=== PATIENT | female | born 2000 | race Caucasian/White ===

== ENCOUNTER → 2020-03-09 08:48 | Outpatient (CLI) | payer BC, SELFPAY ==
--- NOTE | ~2020-03-09 | US_ITS ---
US breast RT complete 03/09/2020 09:22 Indication: Right breast lump for 3 weeks Procedure: High-resolution ultrasound of the right breast Comparison: No prior studies for comparison. Findings: There is an oval circumscribed hypoechoic mass of the right breast at 6:00, 5 cm from the n ipple. This corresponds to the area of palpable concern and measures 1.4 x 1.5 x 0.6 cm. No internal vascularity or posterior features. Impression: 1: Probable benign right breast mass measuring 1.5 cm maximum dimension. BI-RADS CATEGORY 3-PROBABLY BENIGN FINDING RECOMMENDATION: Six-month follow-up right breast ultrasound recommended. Reviewed, dictated and finalized at location A. Impression: 1: Probable benign right breast mass measuring 1.5 cm maximum dimension. BI-RADS CATEGORY 3-PROBABLY BENIGN FINDING RECOMMENDATION: Six-month follow-up right breast ultrasound recommended.
== END ==
PROVIDERS: PCP Nurse Practitioner Family; Visit Provider Nurse Practitioner Family
DX: N63.10 Unspecified lump in the right breast, unspecified quadrant (principal); R92.8 Other abnormal and inconclusive findings on diagnostic imaging of breast
CPT/HCPCS: 76641

== ENCOUNTER 2021-02-11 14:35 | Emergency (ER) | payer OTHER, BC, SELFPAY ==
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
[2021-02-11 14:55] VITALS: BP 130/99; PULSE 98; RESP 15; TEMP 37; O2SAT 100
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
[2021-02-11 16:43] VITALS: BP 113/76; PULSE 87; RESP 14; O2SAT 100
[2021-02-11 17:43] VITALS: BP 110/75; PULSE 81; RESP 15; O2SAT 100
== END 2021-02-11 17:45 | disposition home or self-care (01) ==
PROVIDERS: Emergency Provider Emergency Medicine; PCP Nurse Practitioner Family
DX: S00.93XA Contusion of unspecified part of head, initial encounter (principal); S60.222A Contusion of left hand, initial encounter; V49.50XA Passenger injured in collision with unspecified motor vehicles in traffic accident, initial encounter
CPT/HCPCS: 70450; 73130; 99284

== ENCOUNTER 2025-01-24 09:15 | Outpatient (CLI) | payer OTHER, SELFPAY ==
--- NOTE | ~2025-01-24 | US_ITS ---
EXAMINATION: US OB <= 14 weeks fetus DATE: 01/24/2025 09:37 INDICATION: Uncertain dating of TECHNIQUE: Real-time pelvic ultrasound utilizing both a transvaginal and transabdominal probe was pe rformed. The interpreting radiologist was not present for the study. COMPARISON: None. FINDINGS: The uterus measures 8.5 x 6.0 x 7.7 cm. There is an intrauterine gestational sac. A yolk sac and fet al pole are identified. The crown rump length measures 1.8 cm, which correlates with an estimated ges tational age of 8 weeks and 2 days. heart motion is identified measuring 167 beats per minute ( bpm) by M-mode Doppler. The right ovary measures 2.8 x 2.4 x 1.5 cm. The left ovary is not visualized. There is vascular flow at the right ovary on color Doppler. There is no free fluid in the pelvis. IMPRESSION: 1. Single living fetus with heart rate of 167 bpm. 2. Gestational age by ultrasound of 8 weeks 2 day(s) +/- 5 day(s) with ultrasound estimated date of delivery (ADOL[facility]) of 09/03/2025. Reviewed, dictated and finalized at location A. IMPRESSION: 1. Single living fetus with heart rate of 167 bpm. 2. Gestational age by ultrasound of 8 weeks 2 day(s) +/- 5 day(s) with ultraso und estimated date of delivery (ADOLPH) of 09/03/2025.
== END 2025-01-24 09:16 | disposition home or self-care (01) ==
PROVIDERS: PCP Obstetrics & Gynecology Gynecology; Visit Provider Obstetrics & Gynecology Gynecology
DX: Z36.87 Encounter for antenatal screening for uncertain dates (principal)
CPT/HCPCS: 76801

== ENCOUNTER 2025-04-14 08:00 | Emergency (ER) | payer OTHER, SELFPAY ==
--- NOTE | 2025-04-14 08:02 | ECG_ITS ---
Test Date: 2025-04-14 08:06:12 Measurements Intervals Halliday Rate: 66 P: 20 [place]: 106 QRS: 27 QRSD: 81 T: 34 QT: 374 QTc: 393 Interpretive Statements SINUS RHYTHM WITH SHORT [place] INTERVAL DELAYED PRECORDIAL R/S TRANSITION BORDERLINE ECG No previous ECG available for comparison Electronically Signed On 04-14-2025 08:30:44 CDT by Itz Nye D.O.
[2025-04-14 08:10] VITALS: BP 130/84; O2SAT 100
[2025-04-14 08:12] VITALS: PULSE 85; RESP 20; TEMP 36.6; O2SAT 100
[2025-04-14 08:31] VITALS: BP 114/66; PULSE 81; RESP 14; TEMP 36.7; O2SAT 100
[2025-04-14 09:02] VITALS: BP 126/83; PULSE 94; RESP 14; O2SAT 100
[2025-04-14] MEDS: ACETAMINOPHEN 500 MG TABLET 1000 MG PO (09:20)
[2025-04-14 09:23] LABS: Hematocrit 37.8 % (37.0-47.0); Hemoglobin 12.6 g/dL (12.0-15.0); Immature Granulocyte Percent A 0.8 % (0-0.5); Lymphocytes Absolute Auto 1.50 K/mm3 (0.9-3.2); Mean Corpuscular HGB Conc 33.3 g/dl (32-36); Mean Corpuscular Hemoglobin 32.0 pg (26-34); Mean Corpuscular Volume 95.9 fl (80-100); Nucleated Red Blood Cells Absolute Auto 0.000 K/mm3 (0.0-0.012); Nucleated Red Blood Cells Perc 0.0 % (0.0-0.2); Platelet Count Result 181 k/mm3 (150-375); Red Blood Count 3.94 M/mm3 (4.2-5.4); White Blood Count 14.5 K/mm3 (4.5-10.0)
[2025-04-14 09:31] VITALS: BP 108/61; PULSE 80; RESP 14; TEMP 36.6; O2SAT 100
[2025-04-14 09:47] LABS: Alanine Aminotransferase 94 U/L (6-35); Albumin Level 3.8 g/dL (3.5-5.1); Alkaline Phosphatase 42 U/L (38-126); Anion Gap 6 mmol/L (4-12); Aspartate Amino Transferase 55 U/L (14-36); Bilirubin,Total 0.3 mg/dL (0.2-1.3); Blood Urea Nitrogen 8 mg/dL (7-17); Calcium 8.7 mg/dL (8.4-10.2); Carbon Dioxide 24 mmol/L (22-30); Chloride 105 mmol/L (98-107); Estimated CRCL calculation 115 ml/min; Estimated Glomerular Filt Rate > 60; Glucose 81 mg/dL (65-110); Potassium 3.9 mmol/L (3.4-5.0); Sodium 135 mmol/L (137-145); Total Protein 6.3 g/dL (6.3-8.2)
[2025-04-14 09:59] LABS: Influenza A QL RT-PCR Negative (Negative); Influenza B QL RT-PCR Negative (Negative); RSV RNA, RT-PCR Negative (Negative); SARS-CoV-2 RNA PCR Negative (Negative)
--- NOTE | 2025-04-14 10:06 | ED_ITS ---
HPI - SOB/Dyspnea General Chief Complaint: Shortness of Breath/Dyspnea Stated Complaint: 20 wks preg, cp, sob Time Seen by Provider: 04/14/25 08:46 History of Present Illness HPI Narrative: This is a 25-year-old female approximately 20 weeks by ultrasound who presents to the ED for back pain and chest pain. Patient states that when she woke up this morning, she had upper back pain that began to radiate to her chest. She states that she was having shortness of breath due to the pain felt like she was unable to get a deep breath in. She has had some nasal congestion for the last couple days. No known sick contacts. has otherwise been uncomplicated. Denies fevers, chills, nausea, vomiting, diarrhea or constipation. Related Data Allergies Allergy/AdvReac Type Severity Reaction Status Date / Time lidocaine Allergy Unknown Verified 02/11/21 16:53 oxycodone AdvReac Chest Pain Verified 02/11/21 16:52 Review of Systems 2 Review of Systems: Gen.: Denies fevers or chills Eyes: Denies eye pain or visual change ENT: Denies congestion Respiratory: As per HPI CV: As per HPI GI: Denies abdominal pain nausea, emesis or diarrhea denies burning, urgency, frequency or hematuria Musculoskeletal: Denies back pain or muscle pain Neuro: Denies numbness, tingling, weakness or focal weakness Skin: Denies rash Except as documented, all other systems reviewed and negative [facility] Past Medical History Medical History (Updated 04/14/25 @ 11:17 by Gutierrez Frazier MD) Patient denies significant medical history Social History Social History (Updated 02/11/21 @ 16:35 by Theodore Dos Santos, DO) Smoking status: Never smoker Exam 2 Narrative: APPEARANCE: No acute distress, nontoxic, resting in bed EYES: EOMI HEENT: Normocephalic, atraumatic, OMM RESPIRATORY: No respiratory distress Clear to auscultation bilaterally with no rhonchi wheezing or rales. CARDIOVASCULAR: Regular rate and rhythm without murmurs rubs or gallops. ABDOMINAL: Soft, nontender, nondistended, no rebound or guarding. Uterus palpable below the umbilicus, nontender. MUSCULOSKELETAL: Moves all extremities. No clubbing, cyanosis or edema. NEURO: Awake and alert. Following commands, speech normal, no focal deficits SKIN:: Warm, dry. No rashes lesions or abrasions PSYCHIATRIC: Normal affect/mood, Course Vital Signs Vital signs: Vital Signs Blood Pressure 130/84 04/14/25 08:10 Pulse Oximetry 100 04/14/25 08:10 Temperature 97.9 F 04/14/25 10:17 Pulse Rate 86 04/14/25 10:17 Respiratory Rate 18 04/14/25 10:17 Blood Pressure 118/70 04/14/25 10:17 Pulse Oximetry 98 04/14/25 10:17 Oxygen Delivery Room Air 04/14/25 08:12 MDM - SOB/Dyspnea MDM Narrative Medical decision making narrative: This is a 25-year-old approximately 20 weeks by ultrasound who presented to the ED you for upper back pain that radiates to her chest. Chest pain resolved on my evaluation. Initial vital signs stable. Heart and lungs clear. Abdomen soft and nontender. She had a mild leukocytosis at 14.5. EKG showed no concerning findings. Suspect the patient may have had thoracic back spasms. She also sinus congestion for the past couple days she may have a costochondritis. Patient was feeling slightly better after Tylenol and Lidoderm. And she was given prescription for Lidoderm. She was advised to follow-up with her Ob later this week as scheduled. Patient was agreeable to this plan. Given strict return precautions. Differential Diagnosis Differential diagnosis: Likely other (costochondritis, muscle strain, viral syndrome) Medical Records Attestation: I reviewed the patient's medical records. Lab Data Attestation: I reviewed the patient's lab results. 04/14/25 09:17 04/14/25 09:17 Labs: Lab Results 04/14/25 Range/Units 09:17 WBC 14.5 H (4.5-10.0) K/mm3 RBC 3.94 L (4.2-5.4) M/mm3 Hgb 12.6 (12.0-15.0) g/dL Hct 37.8 (37.0-47.0) % MCV 95.9 (80-100) fl MCH 32.0 (26-34) pg MCHC 33.3 (32-36) g/dl RDW 13.2 (11.5-14.5) % Plt Count 181 (150-375) k/mm3 MPV 10.1 (7.4-10.4) fl Immature Gran % (Auto) 0.8 H (0-0.5) % Neut % (Auto) 79.9 H (45.5-73.1) % Lymph % (Auto) 10.4 L (18.3-44.2) % [place]atte % (Auto) 7.3 (2.6-8.5) % Eos % (Auto) 1.2 (0-4.4) % Baso % (Auto) 0.4 (0.2-1.2) % Lymph # (Auto) 1.50 (0.9-3.2) K/mm3 [place]atte # (Auto) 1.1 H (0.1-0.6) K/mm3 Eos # (Auto) 0.2 (0-0.3) K/mm3 Baso # (Auto) 0.1 (0.0-0.1) K/mm3 Abs Immat Gran (auto) 0.11 H (0.00-0.031) K/mm3 Absolute Neuts (auto) 11.6 H (1.3-6.7) K/mm3 Absolute Nucleated RBC 0.000 (0.0-0.012) K/mm3 Nucleated RBC % 0.0 (0.0-0.2) % Sodium 135 L (137-145) mmol/L Potassium 3.9 (3.4-5.0) mmol/L Chloride 105 (98-107) mmol/L Carbon Dioxide 24 (22-30) mmol/L Anion Gap 6 (4-12) mmol/L BUN 8 (7-17) mg/dL Creatinine 0.64 L (0.7-1.0) mg/dL Estim Creat Clear Calc 115 ml/min Estimated GFR > 60 (59 - ) Glucose 81 (65-110) mg/dL Calcium 8.7 (8.4-10.2) mg/dL Total Bilirubin 0.3 (0.2-1.3) mg/dL AST 55 H (14-36) U/L ALT 94 H (6-35) U/L Alkaline Phosphatase 42 (38-126) U/L Total Protein 6.3 (6.3-8.2) g/dL Albumin 3.8 (3.5-5.1) g/dL Influenza A (RT-PCR) Negative (Negative) Influenza B (RT-PCR) Negative (Negative) RSV (RT-PCR) Negative (Negative) SARS-CoV-2 RNA (RT-PCR) Negative (Negative) ECG Data EKG #1: Attestation: I personally reviewed and interpreted this ECG as follows: ECG completion date: 04/14/25 ECG completion time: 08:06 Prior ECG tracings: not available for review Interpretation: Sinus rhythm with short MA interval, normal axis, no acute ST or T-wave changes. Discharge Plan Discharge Clinical Impression: Acute midline thoracic back pain, Acute costochondritis Patient Disposition: Home Condition: Stable Instructions: Antibiotic Form, Costochondritis (ED) Additional Instructions: Take Tylenol and Lidoderm patches for pain. Continued follow-up with your OBGYN. Return the ED for any worsening symptoms. Patient Language: [place] Prescriptions: New lidocaine [Lidoderm] 5 % adhesive patch,medicated 1 patch topical DAILY Qty: 15 0RF Rx Instructions: leave on most painful area for up to 12 hrs No Action ibuprofen [IBU] 600 mg tablet 600 mg PO Q6H PRN (Reason: pain) Qty: 20 0RF Follow-up/Referrals: Olive Dickey MD [Primary Care Provider, FIELD ADMINISTRATIVE ASSISTANT]
--- NOTE | 2025-04-14 10:12 | PC.NURSE ---
FHT 162
[2025-04-14 10:17] VITALS: BP 118/70; PULSE 86; RESP 18; TEMP 36.6; O2SAT 98
[2025-04-14] MEDS: LIDOCAINE 5% PATCH 1 PATCH TRANSDERM (10:25)
== END 2025-04-14 11:34 | disposition home or self-care (01) ==
PROVIDERS: Emergency Provider Student in an Organized Health Care Education/Training Program; PCP Obstetrics & Gynecology Gynecology
DX: O99.891 Other specified diseases and conditions complicating pregnancy (principal); M54.9 Dorsalgia, unspecified; M94.0 Chondrocostal junction syndrome [Tietze]; Z20.822 Contact with and (suspected) exposure to COVID-19; Z3A.20 20 weeks gestation of pregnancy
CPT/HCPCS: 36415; 80053; 85025; 87637; 93005; 99283; A9270

== ENCOUNTER 2025-04-15 08:17 | Outpatient (CLI) | payer OTHER, SELFPAY ==
--- NOTE | ~2025-04-15 | US_ITS ---
EXAMINATION: US OB /maternal detail DATE: 04/15/2025 09:03 INDICATION: OB anatomy scan TECHNIQUE: Multiple obstetric sonographic images performed. FINDINGS: There is a single living fetus in vertex presentation. The placenta is anterior without placenta previa. Amniotic fluid volume is normal. ROCIO measures cm. cardiac activity and movement is noted with a heart rate of 136 beats per minute. The following anatomy was identified as normal: 4 chamber heart 3 vessel cord cord insertion kidneys urinary bladder stomach spine diaphragm ventricles cisterna magna cerebellum The following biometric data were obtained: BPD: 4.80cm corresponds to gestational age 20 weeks 4 days. Head circumference: 17.66 cm corresponds to gestational age 20 weeks 1 days. Abdominal circumference: 15.39 cm corresponds to gestational age 20 weeks 4 days. Femur length: 3.21 cm corresponds to gestational age 20 weeks 0 days. Head circumference to abdominal circumference ratio: 1.15 ( Estimated weight: 345 grams +/- 52 grams using Hadlock method. IMPRESSION: 1: Single living intrauterine with an estimated gestational age of 20weeks 2days by current ultrasound measurements 2. Normal survey. Reviewed, dictated and finalized at location Q. IMPRESSION: 1: Single living intrauterine with an estimated gestational age of 20 weeks 2days by current ultrasound measurements 2. Normal survey.
== END 2025-04-15 08:18 | disposition home or self-care (01) ==
LOC: MICIMG 08:20
PROVIDERS: PCP Obstetrics & Gynecology Gynecology; Visit Provider Obstetrics & Gynecology Gynecology
DX: Z36.9 Encounter for antenatal screening, unspecified (principal); Z3A.00 Weeks of gestation of pregnancy not specified
CPT/HCPCS: 76805